=== PATIENT | male | born 1960 | race Caucasian/White ===

== ENCOUNTER 2018-04-24 11:44 | Outpatient (CLI) | payer OTHER ==
[2012-02-23 11:26] VITALS: O2SAT 96
== END 2018-04-24 11:45 | disposition home or self-care (01) | DRG 561 ==
LOC: CONVCARE 11:44
PROVIDERS: ATTEND Orthopaedic Surgery
DX: M84.374D Stress fracture, right foot, subsequent encounter for fracture with routine healing (principal)
CPT/HCPCS: 77080

== ENCOUNTER 2018-05-22 12:05 | Outpatient (CLI) | payer OTHER ==
[2012-02-23 11:26] VITALS: O2SAT 96
== END 2018-05-22 12:06 | disposition home or self-care (01) | DRG 561 ==
LOC: CONVCARE 12:05
PROVIDERS: ATTEND Orthopaedic Surgery
DX: S92.351D Displaced fracture of fifth metatarsal bone, right foot, subsequent encounter for fracture with routine healing (principal); S92.321D Displaced fracture of second metatarsal bone, right foot, subsequent encounter for fracture with routine healing
CPT/HCPCS: 73630

== ENCOUNTER 2018-07-03 12:20 | Outpatient (CLI) | payer BC, OTHER ==
[2012-02-23 11:26] VITALS: O2SAT 96
== END 2018-07-03 12:21 | disposition home or self-care (01) ==
LOC: CONVCARE 12:20
PROVIDERS: ATTEND Orthopaedic Surgery
DX: S92.321D Displaced fracture of second metatarsal bone, right foot, subsequent encounter for fracture with routine healing (principal); S92.351D Displaced fracture of fifth metatarsal bone, right foot, subsequent encounter for fracture with routine healing
CPT/HCPCS: 73630

== ENCOUNTER 2018-08-07 12:19 | Outpatient (CLI) | payer BC ==
[2012-02-23 11:26] VITALS: O2SAT 96
== END 2018-08-07 12:20 | disposition home or self-care (01) ==
LOC: CONVCARE 12:19
PROVIDERS: ATTEND Orthopaedic Surgery
DX: S92.321D Displaced fracture of second metatarsal bone, right foot, subsequent encounter for fracture with routine healing (principal); S92.351D Displaced fracture of fifth metatarsal bone, right foot, subsequent encounter for fracture with routine healing
CPT/HCPCS: 73630